=== PATIENT | male | born 1940 | race Two or more races ===

== ENCOUNTER 2021-10-31 17:37 | Emergency (ER) | payer OTHER ==
[~2021-10-31] VITALS: Ht 165.1 cm; Wt 63.5 kg
--- NOTE | 2021-10-31 17:40 | NUR ---
DDIIER 89 FROM HOME C/O VOMITING X1 TODAY AND HIGH BLOOD SUGAR 530MG/DL. THE PATIENT DENIES PAIN. IN ROOM AND DENIES SOB. RESPIRATION REGULAR AND UNLABORED. ATTACHED TO THE MONITOR. WARM BLANKET PROVIDED FOR COMFORT. WILL CONTINUE TO MONITOR THE PATIENT.
--- NOTE | 2021-10-31 17:57 | NUR ---
REPEATED ACCUCHECK IS 527
[2021-10-31] MEDS: IV NS 0.9% 1,000 ML BAG IV ONE (18:09)
[2021-10-31] MEDS: ONDANSETRON HCL/PF 4 MG/2 ML VIAL IVP ONE (18:27)
[2021-10-31] MEDS ORDERED: ONDANSETRON HCL/PF 4 MG/2 ML VIAL ONE (18:28)
--- NOTE | 2021-10-31 18:30 | NUR ---
URINE COLLECTED AND SENT TO THE LAB
[2021-10-31 19:22] LABS: ALANINE AMINOTRANSFERASE 87 U/L (12-78); ALBUMIN 3.1 g/dL (3.4-5.0); ALKALINE PHOSPHATASE 134 U/L (46-116); ASPARTATE AMINOTRANSFERASE 118 U/L (15-37); BILIRUBIN,DIRECT 0.1 mg/dL (0.0-0.2); BILIRUBIN,TOTAL 0.3 mg/dL (0.2-1.0); CALCIUM, SERUM 7.7 mg/dL (8.5-10.1); CREATININE 2.2 mg/dL (0.6-1.3); TOTAL PROTEIN, SERUM 7.5 g/dL (6.4-8.2); UREA NITROGEN, BLOOD 35 mg/dL (7-18)
[2021-10-31 19:33] LABS: CARBON DIOXIDE 24 mmol/L (21-32); CHLORIDE 107 mmol/L (98-107); SODIUM SERUM 144 mmol/L (136-145)
[2021-10-31 19:38] LABS: GLUCOSE 465 mg/dL (74-106); POTASSIUM 2.6 mmol/L (3.5-5.1)
--- NOTE | 2021-10-31 19:44 | NUR ---
REPORT GIVEN TO NURSE NANDA FOR CHE
[2021-10-31 19:59] LABS: BASOPHILS % (AUTO) 0.4 % (0.0-2.0); EOSINOPHILS % (AUTO) 0.7 % (0.0-6.0); HEMATOCRIT 36 % (39-51); MEAN CORPUSCULAR HGB CONC 33 g/dl (31.0-36.0); MEAN CORPUSCULAR VOLUME 89 fL (80-96); MONOCYTES # (AUTO) 0.6 K/uL (0.1-1.30); MONOCYTES % (AUTO) 6.7 % (2.0-12.0); NEUTROPHILS # (AUTO) 7.7 K/uL (1.8-8.9); NEUTROPHILS % (AUTO) 81.2 % (43.0-81.0); PLATELET COUNT (AUTO) 309 K/uL (150-450); RED BLOOD CELL COUNT(AUTO) 4.09 MIL/uL (4.5-6.0); WHITE BLOOD COUNT (AUTO) 9.5 K/uL (4.3-11.0)
[2021-10-31] MEDS ORDERED: INSULIN REGULAR, HUMAN 100 UNIT/ML 10 ML VIAL ONE (20:00)
[2021-10-31] MEDS: INSULIN REGULAR, HUMAN 100 UNIT/ML 10 ML VIAL SQ ONE (20:11)
[2021-10-31] MEDS ORDERED: ONDA4TAB11 PO (20:13)
[2021-10-31] MEDS ORDERED: POTA20TA83 PO (20:13)
[2021-10-31] MEDS ORDERED: POTASSIUM CHLORIDE 20 MEQ TAB.PRT.SR PO ONE (20:48)
[2021-10-31] MEDS: POTASSIUM CHLORIDE 20 MEQ TAB.PRT.SR PO ONE (20:53)
--- NOTE | 2021-10-31 21:45 | NUR ---
ÁLVARO (STEP SON) [phone]
--- NOTE | 2021-10-31 23:33 | NUR ---
SPOKE WITH SON, UNABLE TO CONCRETE BATCHER UNTIL MORNING.
--- NOTE | 2021-10-31 23:53 | NUR ---
SON IS ON THE WAY ETA 1 HOUR
--- NOTE | 2021-11-01 00:20 | NUR ---
Patient discharged to home in stable condition. Written and verbal after care instructions given. Patient verbalizes understanding of instruction.
[2021-11-01 02:30] VITALS: BP 142/70
== END 2021-11-01 00:20 | disposition home or self-care (01) ==
LOC: ER 17:44
DX: E11.65 Type 2 diabetes mellitus with hyperglycemia (principal); E87.6 Hypokalemia; R11.10 Vomiting, unspecified; I10 Essential (primary) hypertension; Z86.73 Personal history of transient ischemic attack (TIA), and cerebral infarction without residual deficits
CPT/HCPCS: 36415; 80048; 80076; 82962 ×3; 85025; 96361; 96372; 96374; 99284; J1815; J2405; J7030

== ENCOUNTER 2024-06-04 11:46 | Emergency (ER) | payer OTHER, MEDICAID ==
[~2024-06-04] VITALS: Ht 165.1 cm; Wt 64.9 kg
[~2024-06-04 11:46] MED LIST: ONDA4TAB11 PO; POTA20TA83 PO
[2024-06-04 12:16] LABS: BASOPHILS % (AUTO) 0.6 % (0.0-2.0); EOSINOPHILS # (AUTO) 0.1 K/uL (0.0-0.7); EOSINOPHILS % (AUTO) 1.6 % (0.0-6.0); HEMATOCRIT 34 % (39-51); HEMOGLOBIN 11.8 g/dL (13.5-17.5); LYMPHOCYTES # (AUTO) 1.9 K/uL (0.8-4.8); LYMPHOCYTES % (AUTO) 29.2 % (20.0-44.0); MEAN CORPUSCULAR HEMOGLOBIN 30 PG (26.0-33.0); MEAN CORPUSCULAR HGB CONC 35 g/dl (31.0-36.0); MEAN CORPUSCULAR VOLUME 88 fL (80-96); MONOCYTES # (AUTO) 0.4 K/uL (0.1-1.30); MONOCYTES % (AUTO) 5.9 % (2.0-12.0); NEUTROPHILS % (AUTO) 62.7 % (43.0-81.0); PLATELET COUNT (AUTO) 319 K/uL (150-450); RED BLOOD CELL COUNT(AUTO) 3.88 MIL/uL (4.5-6.0); RED CELL DISTRIBUTION WIDTH 17.1 % (11.5-15.0); WHITE BLOOD COUNT (AUTO) 6.4 K/uL (4.3-11.0)
[2024-06-04 12:20] LABS: CALCIUM, SERUM 9.3 mg/dL (8.5-10.1); CARBON DIOXIDE 21 mmol/L (21-32); CHLORIDE 105 mmol/L (98-107); GLUCOSE 188 mg/dL (74-106); POTASSIUM 3.8 mmol/L (3.5-5.1); SODIUM SERUM 140 mmol/L (136-145); UREA NITROGEN, BLOOD 28 mg/dL (7-18)
[2024-06-04 16:32] VITALS: BP 154/83; TEMP 98; O2SAT 98
== END 2024-06-04 16:32 | disposition home or self-care (01) ==
LOC: ER 11:52
DX: E16.2 Hypoglycemia, unspecified (principal); I10 Essential (primary) hypertension; E11.9 Type 2 diabetes mellitus without complications; Z86.73 Personal history of transient ischemic attack (TIA), and cerebral infarction without residual deficits; Z91.148 Patient's other noncompliance with medication regimen for other reason
CPT/HCPCS: 36415; 80048-TC; 85025-TC

== ENCOUNTER 2024-06-05 11:20 | Emergency (ER) | payer OTHER, MEDICAID ==
[~2024-06-05] VITALS: Ht 165.1 cm; Wt 49.0 kg
[2024-06-05 12:14] LABS: APPEARANCE,URINE SLIGHTLY CLOUDY (CLEAR); BILIRUBIN,URINE NEGATIVE (NEGATIVE); BLOOD, URINE NEGATIVE Ery/uL (NEGATIVE); COLOR,URINE YELLOW (YELLOW); KETONES,URINE NEGATIVE (NEGATIVE); LEUKOCYTE ESTERASE ,URINE NEGATIVE (NEGATIVE); NITRITE, URINE NEGATIVE (NEGATIVE); PROTEIN,URINE NEGATIVE (NEGATIVE); UGLUCOSE 3+ mg/dL (NEGATIVE); UROBILINOGEN,URINE 0.2 EU/dL (0.2)
[2024-06-05 12:18] LABS: HEMOGLOBIN 12.1 g/dL (13.5-17.5); WHITE BLOOD COUNT (AUTO) 6.7 K/uL (4.3-11.0)
[2024-06-05 12:20] LABS: ADD URINE CULTURE NO; BACTERIA,URINE Rare /HPF (None Seen); CALCIUM, SERUM 9.2 mg/dL (8.5-10.1); CARBON DIOXIDE 28 mmol/L (21-32); CHLORIDE 104 mmol/L (98-107); CREATININE 0.9 mg/dL (0.6-1.3); GLUCOSE 112 mg/dL (74-106); POTASSIUM 4.5 mmol/L (3.5-5.1); RBC,URINE 0-2 /HPF (0-2); SODIUM SERUM 140 mmol/L (136-145); SQUAMOUS EPITHELIAL CELL,UR Few /HPF (None Seen); UREA NITROGEN, BLOOD 23 mg/dL (7-18); WBC,URINE 0-2 /HPF (0-3)
[2024-06-05 12:32] LABS: BASOPHILS % (AUTO) 0.7 % (0.0-2.0); EOSINOPHILS # (AUTO) 0.1 K/uL (0.0-0.7); EOSINOPHILS % (AUTO) 1.2 % (0.0-6.0); HEMATOCRIT 36 % (39-51); LYMPHOCYTES # (AUTO) 1.5 K/uL (0.8-4.8); LYMPHOCYTES % (AUTO) 21.8 % (20.0-44.0); MEAN CORPUSCULAR HEMOGLOBIN 30 PG (26.0-33.0); MEAN CORPUSCULAR HGB CONC 34 g/dl (31.0-36.0); MEAN CORPUSCULAR VOLUME 89 fL (80-96); MONOCYTES # (AUTO) 0.4 K/uL (0.1-1.30); MONOCYTES % (AUTO) 5.3 % (2.0-12.0); NEUTROPHILS # (AUTO) 4.8 K/uL (1.8-8.9); PLATELET COUNT (AUTO) 330 K/uL (150-450); RED BLOOD CELL COUNT(AUTO) 4.03 MIL/uL (4.5-6.0); RED CELL DISTRIBUTION WIDTH 17.5 % (11.5-15.0)
[2024-06-05 12:33] LABS: ALANINE AMINOTRANSFERASE 44 U/L (12-78); ALBUMIN 3.4 g/dL (3.4-5.0); ALKALINE PHOSPHATASE 74 U/L (46-116); ASPARTATE AMINOTRANSFERASE 23 U/L (15-37); BILIRUBIN,DIRECT 0.2 mg/dL (0.0-0.2); BILIRUBIN,TOTAL 0.5 mg/dL (0.2-1.0); LIPASE 14 U/L (16-77); TOTAL PROTEIN, SERUM 7.8 g/dL (6.4-8.2)
[2024-06-05 13:53] VITALS: BP 125/77; TEMP 97.6; O2SAT 100
== END 2024-06-05 17:55 | disposition short-term general hospital (02) ==
LOC: ER 11:29
DX: R10.817 Generalized abdominal tenderness (principal); R33.9 Retention of urine, unspecified; I10 Essential (primary) hypertension; E11.9 Type 2 diabetes mellitus without complications; Z86.73 Personal history of transient ischemic attack (TIA), and cerebral infarction without residual deficits
CPT/HCPCS: 36415; 80048-TC; 80076-TC; 81001; 83690-TC; 85025-TC; 87086-TC